=== PATIENT | female | born 1965 | race Caucasian/White ===

== ENCOUNTER 2018-04-25 14:36 | Emergency (ER) | payer MEDICAID, OTHER ==
[2018-04-25] MEDS: IBUPROFEN 800 MG TAB PO (15:38)
== END 2018-04-25 16:27 | disposition home or self-care (01) ==
LOC: FTE 14:36
DX: S69.91XA Unspecified injury of right wrist, hand and finger(s), initial encounter (principal); E11.9 Type 2 diabetes mellitus without complications; W19.XXXA Unspecified fall, initial encounter; Y92.9 Unspecified place or not applicable
CPT/HCPCS: 29125; 73130-RT; 99283-25

== ENCOUNTER 2019-02-06 09:59 | Emergency (ER) | payer SELFPAY, OTHER, MEDICAID ==
[2019-02-06] MEDS: KETOROLAC 30 MG INJ IV (10:27)
[2019-02-06] MEDS: ONDANSETRON 4 MG INJ IV (10:27)
[2019-02-06] MEDS: SOD CHLORIDE 0.9% 1,000 ML IV (10:28)
[2019-02-06 10:41] LABS: ADD UMIC NO; UR ASCORBIC ACID 40 mg/dL (NEGATIVE); UR BILIRUBIN (Dip) NEGATIVE (NEGATIVE); UR BLOOD (Dip) NEGATIVE (NEGATIVE); UR CLARITY CLEAR (CLEAR); UR COLOR YELLOW (YELLOW); UR GLUCOSE (Dip) 2+ mg/dL (NEGATIVE); UR KETONES (Dip) NEGATIVE (NEGATIVE); UR LEUKOCYTE ESTERASE (Dip) NEGATIVE Leu/ul (NEGATIVE); UR NITRITE (Dip) NEGATIVE (NEGATIVE); UR SPECIFIC GRAVITY (Dip) 1.024 (1.003-1.030); UR TOTAL PROTEIN (Dip) NEGATIVE (NEGATIVE); UR UROBILINOGEN (Dip) NEGATIVE (NEGATIVE)
== END 2019-02-06 11:34 | disposition home or self-care (01) ==
LOC: FTE 09:59
DX: R51 Headache (principal); E11.9 Type 2 diabetes mellitus without complications; R11.0 Nausea
CPT/HCPCS: 81003; 96361; 96374; 96375; 99284-25